=== PATIENT | male | born 1985 | race Asian ===

== ENCOUNTER 2023-11-30 05:34 | Emergency (ER) | payer SELFPAY ==
[~2023-11-30] VITALS: Ht 167.6 cm; Wt 77.1 kg
[2023-11-30] MEDS ORDERED: GUAIFENESIN/D-METHORPHAN HB 5 ML UDC ONE (06:16)
[2023-11-30] MEDS ORDERED: ACETAMINOPHEN ES 500 MG TABLET ONE (06:17)
[2023-11-30] MEDS ORDERED: IBUPROFEN 400 MG TABLET ONE (06:17)
[2023-11-30] MEDS: IBUPROFEN 400 MG TABLET PO ONE (06:19)
[2023-11-30] MEDS: ACETAMINOPHEN ES 500 MG TABLET PO ONE (06:19)
[2023-11-30] MEDS ORDERED: LORAZEPAM 1 MG TABLET ONE (06:19)
[2023-11-30] MEDS: LORAZEPAM 1 MG TABLET PO ONE (06:19)
[2023-11-30] MEDS: GUAIFENESIN/D-METHORPHAN HB 5 ML UDC PO ONE (06:19)
[2023-11-30] MEDS ORDERED: KETO10TA2 PO (08:03)
[2023-11-30] MEDS ORDERED: GUAI1TBM19 PO (08:03)
[2023-11-30 08:11] VITALS: BP 134/91; TEMP 98.7; O2SAT 100
== END 2023-11-30 08:12 | disposition home or self-care (01) ==
LOC: ER 05:40
DX: A08.4 Viral intestinal infection, unspecified (principal); F41.9 Anxiety disorder, unspecified; F32.A Depression, unspecified; F17.200 Nicotine dependence, unspecified, uncomplicated; Z60.2 Problems related to living alone; Z20.822 Contact with and (suspected) exposure to COVID-19